=== PATIENT | male | born 1975 | race Caucasian/White ===

== ENCOUNTER 2023-01-15 22:12 | Emergency (ER) | payer OTHER ==
[~2023-01-15] VITALS: Ht 157.5 cm; Wt 72.6 kg
[~2023-01-15 22:12] MED LIST: SIMV-31 PO
[2023-01-15 22:14] VITALS: BP 157/89; PULSE 94; RESP 16; TEMP 97.7; O2SAT 100
--- NOTE | 2023-01-15 22:18 | NUR ---
TO LOBBY FOLLOWING TRIAGE
[2023-01-15] MEDS ORDERED: ONDANSETRON 4 MG ODT PO ONE (22:20)
--- NOTE | 2023-01-16 00:55 | NUR ---
SPOKE WITH PATIENT AT BEDSIDE WHO REPORTS BACK PAIN AND NAUSEA WHICH HAS BEEN PRESENT X2 WEEKS, PATIENT ALSO REPORTS VOMITING WHICH STARTED TODAY. PMH: [id number]
--- NOTE | 2023-01-16 01:01 | NUR ---
PT TAKEN TO BED 2
--- NOTE | 2023-01-16 01:05 | NUR ---
Dr. Sanches at bedside
[2023-01-16] MEDS ORDERED: KETOROLAC 30 MG/ML VIAL IM ONE (01:10)
[2023-01-16 01:34] LABS: APPEARANCE,URINE CLEAR (CLEAR); BILIRUBIN,URINE NEGATIVE (NEGATIVE); BLOOD, URINE 1+ (NEGATIVE); COLOR,URINE YELLOW (YELLOW); LEUKOCYTE ESTERASE ,URINE 1+ (NEGATIVE); NITRITE, URINE NEGATIVE (NEGATIVE); UGLUCOSE 3+ (NEGATIVE)
[2023-01-16 01:38] LABS: RBC,URINE 0-5 /HPF (0-5)
[2023-01-16 02:11] LABS: BASOPHILS % (AUTO) 0.8 % (0.0-2.0); EOSINOPHILS # (AUTO) 0.2 K/uL (0-0.4); EOSINOPHILS % (AUTO) 2.7 % (0.0-4.0); HEMOGLOBIN 13.6 g/dL (12.0-18.0); LYMPHOCYTES # (AUTO) 2.7 K/uL (2.0-11.5); LYMPHOCYTES % (AUTO) 40.9 % (20.5-51.1); MEAN CORPUSCULAR HEMOGLOBIN 31 pg (27-31); MEAN CORPUSCULAR HGB CONC 35 g/dL (33-37); MONOCYTES # (AUTO) 0.7 K/uL (0.8-1.0); MONOCYTES % (AUTO) 10.3 % (1.7-9.3); NEUTROPHILS % (AUTO) 45.3 % (42.2-75.2); PLATELET COUNT (AUTO) 249 K/uL (140-450); RED BLOOD CELL COUNT(AUTO) 4.33 MIL/uL (4.20-6.10); RED CELL DISTRIBUTION WIDTH 12.9 % (11.6-13.7); WHITE BLOOD COUNT (AUTO) 6.6 K/uL (4.8-10.8)
[2023-01-16 02:20] LABS: ANION GAP 7.6 (8-16); CARBON DIOXIDE 30.6 mmol/L (21-32); CREATININE 0.7 mg/dL (0.6-1.3); POTASSIUM 4.2 mmol/L (3.5-5.1)
[2023-01-16 02:22] LABS: BARBITURATE, URINE NEGATIVE ng/ml (NEG <=200); BENZODIAZEPINE, URINE NEGATIVE ng/mL (NEG <=200); CANNABINOID, URINE NEGATIVE ng/mL (NEG <=50); COCAINE, URINE NEGATIVE ng/mL (NEG <=300); OPIATE, URINE NEGATIVE ng/mL (NEG <=2000); PHENCYCLIDINE SCREEN,URINE NEGATIVE ng/mL (NEG <=25)
[2023-01-16] MEDS ORDERED: NAPR-54 PO (06:17)
[2023-01-16] MEDS ORDERED: CEPH-588 PO (06:17)
[2023-01-16 06:22] VITALS: BP 157/89; PULSE 94; RESP 16; TEMP 97.7; O2SAT 100
--- NOTE | 2023-01-16 06:22 | NUR ---
Patient discharged with v/s stable. Written and verbal after care instructions given and explained. Patient alert, oriented and verbalized understanding of instructions. Ambulatory with steady gait. All questions addressed prior to discharge. ID band removed. Patient advised to follow up with PMD. Rx of CEPHALEXIN, NAPROXEN given. Patient educated on indication of medication including possible reaction and side effects. Opportunity to ask questions provided and answered. DX: (1). ACUTE BACK PAIN, ADULT, (2). URINARY TRACT INFECTION, ADULT
== END 2023-01-16 06:22 | disposition home or self-care (01) ==
LOC: MED 22:12
DX: N39.0 Urinary tract infection, site not specified (principal); M54.50 Low back pain, unspecified; R10.9 Unspecified abdominal pain; Z79.899 Other long term (current) drug therapy
CPT/HCPCS: 36415; 74176; 80048; 80305; 81001; 85025; 87086; 96372; 99285; J1885; Q0162